=== PATIENT | female | born 1940 | race Caucasian/White ===

== ENCOUNTER 2016-09-08 06:58 | Outpatient (CLI) | payer MEDICARE, BC ==
[~2016-09-08] VITALS: Ht 167.6 cm; Wt 85.0 kg
--- NOTE | ~2016-09-08 | HEMODYNAMI ---
PATIENT:ADELSO MUHAMMAD MEDICAL RECORD: [id number] : 40 LOCATION:DTejinderCAT ADMISSION DATE: 09/08/16 Generatedon:09/08/201610:03 Patient name: ADELSO MUHAMMAD Patient #: [id number] SSN: : 1940 Date of study: 09/08/2016 Page: Of Hemodynamic Procedure Report Patient Data Patient Demographics Procedure consent was obtained First Name: ADELSO Gender: Female Last Name: JB : 1940 Patient #: [id number] Age: 76 year(s) Race: Additional ID: [id number] Contact details Address: [address] [place] [address] State: [place] City: [place] Zip code: [address] Past Medical History Allergies: No known allergies Admission Admission Data Admission Date: 09/08/2016 Admission Time: 6:58 Height (in.): 66 BSA: 1.94 (m2) Height (cm.): 167.64 BMI: 30.18 (kg/m2) Weight (lbs.): 187 Weight (kg.): 84.82 Lab Results Lab Result Date: 09/08/2016 Lab Result Time: 7:25 Biochemistry Name Units Result Min Max BUN mg/dl 23 --(----)-* 7 18 CK-MB ng/ml 0.8 --(*---)-- 0 3.6 Creatinine mg/dl 1.2 --(---*)-- 0.6 1.3 Creatinine l 53 --(*---)-- 21 215 Kinase Troponin l ng/ml 0.017 --(-*--)-- 0 0.06 CBC Name Units Result Min Max Hematocrit % 39.4 -*(----)-- 42 54 Hemoglobin g/dl 12.8 -*(----)-- 13.5 17.5 Procedure Procedure Types Cath Procedure Diagnostic Procedure C [facility] w/Coronaries FFR/IVUS Intra-Coronary IVUS Initial Intra-Coronary IVUS Additional PCI Procedure Coronary Stent Initial Peripheral Cath Diagnostic Procedure Cath Peripheral Sqcly-Foazkki-Lut-Off Procedure Description Procedure Date Procedure Date: 09/08/2016 Procedure Start Time: 9:22 Procedure End Time: 10:00 Procedure Staff Name Function Trevor Vaz MD Performing Physician Brigitte Beasley RT Scrub Negrito Gonzalez RN Nurse Prateek Mar RT Monitor Procedure Data Cath Procedure Fluoroscopy Diagnostic fluoroscopy Total fluoroscopy Time: 7.2 time: 7.2 min min Diagnostic fluoroscopy Total fluoroscopy dose: 851 dose: 851 mGy mGy Contrast Material Contrast Material Type Amount (ml) Isovue 300 172 Entry Location Entry Primary Successful Side Size Upsize Upsize Entry Closure Wylie ccessful Closure Location (Fr) 1 (Fr) 2 (Fr) Remarks Device Remarks Femoral Right 6 Fr Mechanical artery Short Compression Femoral Right 5 Fr 6 Fr Exoseal artery Short Estimated blood loss: 10 ml Diagnostic catheters Device Type Used For End Catheter Placement Terumo 5Fr Lowell 110cm Procedure catheter Cordis 5Fr Pigtail Procedure Catheter (MP) Cordis 5Fr JL 4.0 Procedure Catheter (MP) Cordis 5Fr 3DRC Catheter Procedure (MP) Procedure Complications No complications Procedure Medications Medication Administration Route Dosage Oxygen NC 2 l/min Heparin Flush Bag added to field 2 bags (1000units/500ml NS) 0.9% NaCl I.V. 100 ml/hr Radial Cocktail added to field 1 syringe (Verapomil 2mg/Nitro 400mcg/Heparin 1500units) Fentanyl I.V. 50 mcg Versed I.V. 1 mg Radial Cocktail I.A. 1 syringe (Verapomil 2mg/Nitro 400mcg/Heparin 1500units) Fentanyl I.V. 50 mcg Versed I.V. 1 mg Heparin Bolus I.V. units Nitroglycerin IC/IA I.C. 150 mcg Hemodynamics Rest BSA: 1.94 (m2) HGB: 12.8 (g/dl) O2 Consumption: Estimated: 173.01 (ml/min) O2 Co nsumption indexed: Estimated:89.18 (ml/min/m) Heart Rate: 66 (bpm) Snapshots Pre Cath Intra NCS Post Cath Vital Signs Time Heart Resp SPO2 etCO2 [id number] NIBP (mmHg) Rhythm Pain Sedation Rate (ipm) (%) (mmHg) (mmHg) Status Level (bpm) 9:05:33 67 18 95 0 0 163/88(137) NSR 0 (11) 10(A) , No pain 9:09:55 66 20 96 0 0 164/83(146) NSR 0 (11) 10(A) , No pain 9:14:13 66 18 96 0 0 147/80(132) NSR 0 (11) 10(A) , No pain 9:18:31 67 18 96 0 0 125/74(93) NSR 0 (11) 10(A) , No pain 9:22:43 67 17 95 0 0 117/67(94) NSR 0 (11) 9(A) , No pain 9:26:53 70 17 94 0 0 110/64(81) NSR 0 (11) 9(A) , No pain 9:31:04 67 17 94 0 0 97/51(74) NSR 0 (11) 9(A) , No pain 9:35:10 68 17 94 0 0 103/57(73) NSR 0 (11) 9(A) , No pain 9:39:20 68 17 95 0 0 81/47(74) NSR 0 (11) 9(A) , No pain 9:43:20 65 16 95 0 0 98/56(82) NSR 0 (11) 9(A) , No pain 9:47:22 70 17 96 0 0 118/63(89) NSR 0 (11) 9(A) , No pain 9:51:29 72 17 94 0 0 101/63(86) NSR 0 (11) 9(A) , No pain 9:55:45 71 17 96 0 0 124/72(86) NSR 0 (11) 9(A) , No pain 9:59:53 70 9 96 0 0 128/81(106) NSR 0 (11) 9(A) , No pain Medications Time Medication Route Dose Verified Delivered Reason Notes Effectiveness by by 9:08:31 Oxygen NC 2 l/min Negrito Mahan Per physician Carlos Gonzalez RN RN 9:08:44 Heparin Flush added 2 bags Negrito Mahan used for Bag to Carlos Gonzalez air traffic coordinator (1000units/500ml field RN NS) 9:08:57 0.9% NaCl I.V. 100 Negrito Mahan Per physician ml/hr Carlos Gonzaelz RN RN 9:09:05 Radial Cocktail added 1 Negrito Negrito used for (Verapomil to syringe Carlos Gonzalez RN procedure 2mg/Nitro field RN 400mcg/Heparin 1500units) 9:21:46 Fentanyl I.V. 50 mcg Negrito Negrito for sedation Carlos Gonzalez RN RN 9:21:53 Versed I.V. 1 mg Negrito Mahan for sedation Carlos Gonzalez RN RN 9:23:33 Radial Cocktail I.A. 1 Negrito Trevor for (Verapomil syringe Carlos Vaz MD vasodilation 2mg/Nitro RN 400mcg/Heparin 1500units) 9:23:40 Fentanyl I.V. 50 mcg Negrito Mahan for sedation Carlos Gonzalez RN RN 9:23:45 Versed I.V. 1 mg Negrito Negrito for sedation Carlos Gonzalez RN RN 9:33:17 Heparin Bolus I.V. units Negrito Mahan for Carlos Gonzalez RN anticoagulation RN 9:49:44 Nitroglycerin I.C. 150 mcg Negrito Mahan Per physician IC/IA Carlos Gonzalez RN drawer in jacquard loom Log Time Note 8:45:05 Negrito Gonzalez RN sent for patient. Start room use. 8:45:06 Time tracking: Regular hours 8:45:10 Plan of Care:Hemodynamics will remain stable., Cardiac rhythm will remain stable., Comfort level will be maintained., Respiratory function will remain adequate., Patient/ family verbilizes understanding of procedure., Procedure tolerated without complication., Recovers from procedure without complications.. 8:57:27 Patient received from Pre/Post Procedure Room to [facility] 1 Alert and oriented. Tansferred to table in Supine position. 8:57:28 Warm blankets applied, and vania hugger turned on for patient comfort. 8:57:28 Correct patient and procedure confirmed by team. 8:57:30 Signed procedure consent form obtained from patient. 8:57:31 ECG and BP/O2 sat monitors applied to patient. 8:57:31 Full Disclosure recording started 9:04:18 Vital chart was started 9:06:22 Baseline sample Acquired. 9:06:28 Rhythm: sinus rhythm 9:06:46 H&P Date Dictated: 09/07/2016 Within 30 days and on chart., H&P Addendum completed by physician on day of procedure. (MUST COMPLETE FOR ALL OUTPATIENTS). 9:06:47 Pre-procedure instructions explained to patient. 9:06:49 Pre-op teaching completed and patient verbalized understanding. 9:06:53 Family in waiting room. 9:06:55 Patient NPO since Midnight. 9:07:02 Patient allergic to No known allergies 9:08:31 Oxygen 2 l/min NC was administered by Negrito Gonzalez RN; Per physician; 9:08:44 Heparin Flush Bag (1000units/500ml NS) 2 bags added to field was administered by Negrito Gonzalez RN; used for procedure; 9:08:57 0.9% NaCl 100 ml/hr I.V. was administered by Negrito Gonzalez RN; Per physician; 9:09:05 Radial Cocktail (Verapomil 2mg/Nitro 400mcg/Heparin 1500units) 1 syringe added to field was administered by Negrito Gonzalez RN; used for procedure; 9:09:14 Is the patient allergic to Iodine/contrast media? No. 9:09:15 Is patient on blood thinner?Yes 9:09:19 ACC The patient was administered the following blood thiners within the last 24 hours: ACCAspirin, ACCPlavix 9:09:22 Patient diabetic? No. 9:09:27 Previous problem with sedation/anesthesia? No ? 9:09:28 Snore? Yes 9:09:29 Sleep apnea? Yes 9:09:30 Deviated septum? No 9:09:31 Opens mouth fully? Yes 9:09:32 Sticks out tongue? Yes 9:09:35 Airway obstruction? Yes copd 9:09:39 Dentures? Yes in tight] 9:09:42 Modified Jagjit's test Ulnar < 7 seconds 9:09:44 Patient pain scale 0/10 ?. 9:09:48 IV patent on arrival in left forearm with 0.9% NaCl at [facility]. 9:10:36 Lab Result : BUN 23 mg/dl 9:10:36 Lab Result : Hemoglobin 12.8 g/dl 9:10:36 Lab Result : Creatinine 1.2 mg/dl 9:10:36 Lab Result : Hematocrit 39.4 % 9:10:39 Lab results completed and on chart. 9:10:42 Right Radial & Right Groin area was prepped with chlora-prep and draped in sterile fashion 9:10:43 Alarms reviewed by R. N. 9:10:46 Sharps counted by scrub and verified by R.N. 9:10:50 Use device set Radial Dx 9:10:53 Tegaderm 4 x 4 opened to sterile field. 9:10:54 Acist Manifold opened to sterile field. 9:10:54 Acist Hand Control opened to sterile field. 9:10:55 Acist Syringe opened to sterile field. 9:10:56 Medline Cath Pack opened to sterile field. 9:10:56 Bag Decanter opened to sterile field. 9:10:57 Terumo 6Fr Slender Glidesheath opened to sterile field. 9:10:57 St Adonis 260cm J .035 wire opened to sterile field. 9:11:55 Patient Weight : 187 kg 9:12:00 Patient Height : 66 cm 9:16:18 Lab Result : Troponin l 0.017 ng/ml 9:16:18 Lab Result : Creatinine Kinase 53 l 9:16:18 Lab Result : CK-MB 0.8 ng/ml 9:21:07 Zero performed for pressure channel P1 9:21:15 Physician arrived 9:21:15 --------ALL STOP TIME OUT------ 9:21:15 Final Timeout: patient, procedure, and site verified with staff and physician. All members of the team are in agreement. 9:21:18 Right Radial & Right Groin site verified by team. 9:21:21 Physical assessment completed. ASA score P 2 - A patient with mild systemic disease as per Trevor Vaz MD. 9:21:25 Sedation plan: IV Moderate Sedation Versed, Fentanyl 9::46 Fentanyl 50 mcg I.V. was administered by Negrito Gonzalez RN; for sedation; 9::53 Versed 1 mg I.V. was administered by Negrito Gonzalez RN; for sedation; 9:22:28 Procedure started. 9:22:32 Local anesthetic to right radial artery with Lidocaine 2% by Trevor Vaz MD.INITIAL ACCESS ONLY 9:22:39 A 6 Fr Short sheath was inserted into the Right Femoral artery 9::55 A Terumo 5Fr Lowell 110cm catheter was advanced over the wire and used for Procedure. 9:23:33 Radial Cocktail (Verapomil 2mg/Nitro 400mcg/Heparin 1500units) 1 syringe I.A. was administered by Trevor Vaz MD; for vasodilation; 9:23:40 Fentanyl 50 mcg I.V. was administered by Negrito Gonzalez RN; for sedation; 9:23:45 Versed 1 mg I.V. was administered by Negrito Gonzalez RN; for sedation; 9:24:24 unabel to advance through radial approach due to a loop. 9:26:05 Local anesthetic to right femoral artery with Lidocaine 2% by Trevor Vaz MD.ADDITIONAL ACCESS 9:26:13 Terumo 5Fr Belding Sheath opened to sterile field. 9:26:24 Use device set Multipack Set 9:26:26 Diagnostic Infinity 5Fr Multipack catheter opened to sterile field. 9:26:41 A 5 Fr sheath was inserted into the Right Femoral artery 9:26:48 A Cordis 5Fr Pigtail Catheter (MP) was advanced over the wire and used for Procedure. 9:27:27 LV angiography performed. 9:27:28 LV gram done using ZAVALA 9:27:38 EF : 60 % 9::42 Injector settings: Ml/sec: 10, Volume: 20, 9:27:55 Procedure type changed to Cath procedure, Diagnostic procedure, LHC, LHC w/Coronaries, FFR/IVUS, Intra-Coronary IVUS Initial, Intra-Coronary IVUS Additional, PCI procedure, Coronary Stent Initial, Peripheral Cath Diagnostic Procedure, Cath Peripheral, Avhre-Tohxcuj-Lnr-Off 9:28:09 Abdominal Aortagram was performed. 9:28:17 Left leg runoff performed. 9:28:57 Catheter exchanged over wire. 9:29:04 A Cordis 5Fr JL 4.0 Catheter (MP) was advanced over the wire and used for Procedure. 9:29:43 LCA angiography performed. 9:30:24 Pruitt Whisper J 300cm 0.014 guide wire opened to sterile field. 9:30:28 Terumo 6Fr Belding Sheath opened to sterile field. 9:30:29 Merit BasixCompak Inflation Kit opened to sterile field. 9:31:25 Catheter exchanged over wire. 9:31:29 A Cordis 5Fr 3DRC Catheter (MP) was advanced over the wire and used for Procedure. 9:32:02 Catheter removed. 9:32:15 Sheath upsized to a 6 Fr Short. 9:32:24 Greenbush Cabazon Eagleye IVUS Catheter opened to sterile field. 9:33:08 Cordis 6FR XBLAD 3.5 guide catheter opened to sterile field. 9:33:16 6 Fr xblad 3.5 guide catheter was inserted over the wire 9:33:17 Heparin Bolus units I.V. was administered by Negrito Gonzalez RN; for anticoagulation; 9:33:19 whisper wire advanced. 9:33:56 IVUS catheter advanced over wire. 9:35:17 Wire advanced across lesion. 9:36:42 IVUS pass to LAD lesion performed. 9:36:45 IVUS catheter removed over wire. 9:36:51 Wire removed. 9:37:18 Medtronic Launcher 6Fr AR 1.0 guide catheter opened to sterile field. 9:37:36 6 Fr AR 1 guide catheter was inserted over the wire 9:38:11 Wire advanced across lesion. 9:38:16 IVUS catheter advanced over wire. 9:38:50 IVUS pass to RCA lesion performed. 9:39:51 IVUS catheter removed over wire. 9:43:17 Wire removed. 9:45:25 whisper wire advanced. 9:45:26 Wire advanced across lesion. 9:46:10 Inflation Number: 1 A Biofreedom 3.5 x 24 stent was prepped and advanced across the Prox RCA. The stent was deployed at 13 ESTUARDO for 0:10 (min:sec). 9:46:46 Stent catheter was removed intact over wire. 9:48:24 Inflation Number: 1 A Biofreedom 3.5 x 14 stent was prepped and advanced across the Mid RCA. The stent was deployed at 9 ESTUARDO for 0:10 (min:sec). 9:49:32 Stent catheter was removed intact over wire. 9:49:44 Nitroglycerin IC/IA 150 mcg I.C. was administered by Negrito Gonzalez RN; Per physician; 9:50:38 Wire removed. 9:50:39 Guide catheter removed. 9:50:52 Terumo TR Band Standard opened to sterile field. 9:51:00 Cordis 6Fr Exoseal opened to sterile field. 9:51:23 Sheath removed intact; hemostasis achieved with Exoseal to the Right Femoral artery. 9:51:30 Sheath removed intact; hemostasis achieved with Mechanical Compression to the Right Femoral artery. 9:51:38 Procedure ended.(Physican Out) 9:55:51 Fluoroscopy time 07.20 minutes. 9:55:55 Fluoroscopy dose: 851 mGy 9:55:55 Flurop Dose total: 851 9:56:10 Contrast amount:Isovue 300 172ml. 9:56:12 Sharps counted by scrub and verified by R.N. 9:56:31 TR band inflated with 12cc of air. 9:56:48 Insertion/operative site no bleeding no hematoma. 9:56:51 Post-op/insertion site Right Femoral artery dressed using a 4 x 4 and Tegaderm. 9:57:06 Post right femoral artery:stable, soft, clean and dry 9:57:08 Post Procedure Pulses reassessed and unchanged 9:57:10 Post-procedure physical assessment completed. ASA score P 2 - A patient with mild systemic disease as per Trevor Vaz MD. 9:57:12 Post procedure rhythm: unchanged. 9:57:14 Estimated blood loss: 10 ml 9:57:15 Post procedure instruction explained to patient.Patient verbalizes understanding. 9:57:16 Patient needs reinforcement of post procedure teaching. 10:00:13 Tegaderm 4 x 4 opened to sterile field. 10:00:24 Procedure and supply charges have been captured, reviewed, submitted and are correct. 10:00:26 Procedure Complication : No complications 10:00:28 Vital chart was stopped 10:00:30 See physician's report for complete and final results. 10:00:31 Report given to Pre/Post Procedure Room. 10:00:33 Patient transfered to Pre/Post Procedure Room with Stretcher. 10:00:35 Procedure ended. 10:00:35 Full Disclosure recording stopped 10:03:01 End room use (Document Last) Intervention Summary Intervention Notes Time ActionType Lesion and Equipment Action# Pressure Duration Attributes Used 9:46:10 Place stent Prox RCA Biofreedom 1 13 00:10 3.5 x 24 stent 9:48:24 Place stent Mid RCA Biofreedom 1 9 00:10 3.5 x 14 stent Device Usage Item Name Manufacture Quantity Catalog Hospital Part Current Minimal Lot# / Number Charge Number Stock Stock Serial# Code Tegaderm 4 3M 2 [id number] 574898 653681 5 x 4 Acist Acist 1 40767 458340 524770 793838 5 Manifold Medical Systems Inc Acist Hand Acist 1 88741 917245 719822 265412 5 Control Medical Systems Inc Acist Acist 1 26021 023393 048116 086897 20 Syringe Medical Systems Inc Medline Cardinal 1 [id number] 965515 86977 310368 5 Cath Pack Health Bag Microtek 1 2002S 338635 45810 567564 5 [employer] Terumo 6Fr Terumo 1 [id number] 796201 100701 314073 [address] [facility] [address] Adonis 1 664026 992836 793657 007631 30 260cm J .035 wire Terumo 5Fr Terumo 1 40-5407 523908 738356 391342 5 Lowell 110cm catheter Terumo 5Fr Terumo 1 NFC942 121854 039209 846622 40 Belding Sheath Diagnostic Cardinal 1 EL6922 162131 10942 553108 30 Infinity Health 5Fr Multipack catheter Cordis 5Fr Cardinal 1 989761 5 Pigtail Health Catheter (MP) Cordis 5Fr Cardinal 1 045067 5 JL 4.0 Health Catheter (MP) Pruitt Pruitt 1 [id number] 846164 312349 138376 5 Whisper J Vascular 300cm 0.014 guide wire Terumo 6Fr Terumo 1 [id number] 718420 596112 370226 40 Belding Sheath Merit Merit 1 DA0685 366080 010529 903501 15 [facility] Hospital[facility] Medical Inflation Kit Cordis 5Fr Cardinal 1 537491 5 3DRC Health Catheter (MP) Greenbush Greenbush 1 [id number] 043083 934622 559084 8 [place] Eagleye IVUS Catheter Cordis 6FR Cardinal 1 [id number] 686200 558784 593177 10 XBLAD 3.5 Health guide catheter Medtronic Medtronic 1 [id number] 792516 31834 636493 1 Launcher 6Fr AR 1.0 guide catheter Biofreedom Biosensors 1 [id number] 998791 908843 5 [id number] 3.5 x 24 Europe SA stent Biofreedom Biosensors 1 [id number] 021222 233805 5 [id number] 3.5 x 14 Europe SA stent Terumo TR Terumo 1 [id number] 798906 059540 971446 40 Band Standard Cordis 6Fr Cardinal 1 EX600 853953 363962 602691 10 [facility] Signature Audit [place] Stage Time Signature Unsigned Intra-Procedure 09/08/2016 Prateek Mar 10:03:10 AM RT(R) Signatures Monitor : Prateek Mar RT Signature : Date : Time : [address] [address]
[2016-09-08] MEDS ORDERED: PLAVIX75 MG PO ×2 (07:30→10:22)
[2016-09-08] MEDS ORDERED: REQUIP1 MG PO (07:31)
[2016-09-08] MEDS ORDERED: XALATAN 0.0052.5 ML EACH EYE (07:31)
[2016-09-08] MEDS ORDERED: OMEPRAZOLE (07:32)
[2016-09-08] MEDS ORDERED: BAYER CHEWABLE81 MG PO (07:33)
[2016-09-08] MEDS ORDERED: HYZAAR 100-25 T1 TAB PO (07:33)
[2016-09-08] MEDS ORDERED: PAXIL20 MG PO (07:34)
[2016-09-08] MEDS ORDERED: MOBIC7.5 MG PO (07:34)
[2016-09-08] MEDS ORDERED: K-TAB10 MEQ PO (07:35)
[2016-09-08] MEDS ORDERED: PEPCID AC20 MG PO (07:35)
[2016-09-08] MEDS ORDERED: FUROSEMIDE20 MG PO (07:35)
[2016-09-08] MEDS ORDERED: FISH OIL 1,0001 CA1 PO (07:36)
[2016-09-08 07:44] VITALS: BP 131/69; BMI 30.2
[2016-09-08 07:46] VITALS: BP 131/69; Ht 167.6 cm; Wt 85.0 kg
[2016-09-08 08:08] LABS: BASOPHILS 0.3 % (0.0-2.0); EOSINOPHILS 5.8 % (0-7); HEMATOCRIT 39.4 % (36.0-48.0); HEMOGLOBIN 12.8 g/dL (12-16); MCH 29.2 pg (26.0-34.0); MCHC 32.5 g/dL (31.0-37.0); MCV 89.7 fL (80.0-100.0); MEAN PLATELET VOLUME 11.5 fL (7.4-10.4); MONOCYTES 9.7 % (2-11); NEUTROPHILS 55.2 % (40-80); PLATELET COUNT 139 10x3/uL (130-400); RBC 4.39 10x6/uL (4.00-5.40); RDW 13.2 % (11.5-14.5); WBC 6.1 10x3/uL (4.8-10.8)
[2016-09-08 08:19] LABS: CALC OSMOLALITY 295 mosm/kg (275-300); CALCIUM 9.5 mg/dL (8.5-10.1); CARBON DIOXIDE 28.5 mmol/L (21.0-32.0); CHLORIDE - SERUM 109 mmol/L (98-107); CKMB 0.8 U/L (0.0-3.6); CREATINE KINASE 53 UL (21-215); CREATININE - SERUM 1.2 mg/dL (0.6-1.3); GLUCOSE 117 mg/dL (74-106); POTASSIUM - SERUM 3.5 mmol/L (3.5-5.1); SODIUM 146 mmol/L (136-145); UREA NITROGEN 23 mg/dL (7-18); eGFR NON AFRICAN AMERICAN 46 mL/min (90-120)
[2016-09-08 08:20] LABS: TROPONIN-I < 0.017 ng/mL (0.000-0.060)
--- NOTE | 2016-09-08 10:39 | NUR ---
1030 SLEEPING, LYING FLAT. NSR RATE 64 W NO C/O CHEST PAIN. PULSES PALP X4. R WRIST TR BAND C/D/I WITH NO HEMATOMA. R GROIN EXOSEAL C/D/I WITH NO HEMATOMA OR BLEEDING.
--- NOTE | 2016-09-08 11:14 | NUR ---
1100 LYING FLAT, NSR RATE 64 W NO C/O CHEST PAIN. PULSES PALP X4, R WRIST AND R GROIN REMAIN C/D/I WITH NO HEMATOMA OR BLEEDING. PULSES PALP X 4. FAMILY AT BEDSIDE. ROOM AIR WITH NO DISTRESS.
--- NOTE | 2016-09-08 13:16 | NUR ---
1145 LYING FLAT, VITALS ALL WNL. R WRIST AND R GROIN REMAINS C/D/I WITH NO HEMATOMA OR BLEEDING. 1300 2CC AIR REMOVED FROM R WRIST TR BAND. R GROIN REMAINS C/D/I WITH NO HEMATOMA OR BLEEDING.
--- NOTE | 2016-09-08 13:30 | NUR ---
1330 HOB ELEVATED, SITTING UP EATING SANDWICH. R WRIST TR BAND. STUDY EKG COMPLETED AT BEDSIDE.
--- NOTE | 2016-09-08 14:34 | NUR ---
REMAINING AIR REMOVED FROM R WRIST TR BAND. TEGADERM AND COTTON BALL APPLIED. R GROIN REMAINS C/D/I WITH NO HEMATOMA OR BLEEDING. AMBULATED TO BATHROOM, R GROIN REMAINS C/D/I. D/C INSTRUCTIONS DISCUSSED WITH PATIENT AND AT BEDSIDE. WHEELED OUT VIA WHEELCHAIR.
--- NOTE | 2016-09-13 08:06 | OP ---
PATIENT NAME: ADELSO MUHAMMAD MEDICAL RECORD: [id number] :40 LOCATION:D.CAT ADMISSION DATE: SURGEON: RUSS SHAH MD DATE OF OPERATION: 09/08/2016 PROCEDURES: 1. PTCA stent to RCA. 2. Intravascular ultrasound of RCA. 3. Intravascular ultrasound of LAD. 4. Left heart catheterization. 5. Selective coronary angiography. 6. Left ventriculogram. INDICATION: Unstable angina. PROCEDURE IN DETAIL: After informed consent was obtained and after a detailed explanation of the risks, benefits as well as alternative therapies, the patient elected to proceed with angiogram and angioplasty. The right femoral area was prepped and draped in normal sterile fashion. The right femoral artery was cannulated via modified Seldinger technique with placement of a 6-Bulgarian sheath. All catheters exchanged through this sheath. FINDINGS: The left ventriculogram was performed in standard 30-degree ZAVALA view, reveals good cardiac wall motion throughout all segments. Overall ejection fraction estimated at 60%. SELECTIVE CORONARY ANGIOGRAPHY: 1. Left main stenosis with no significant angiographic disease. 2. Left anterior descending has a questionable area of stenosis proximally; however, intravascular ultrasound revealed that this is no greater than 30%. 3. Left circumflex shows moderate irregularities, but no flow-limiting stenosis. 4. Right coronary has a 70% stenosis confirmed by intravascular ultrasound throughout the mid vessel. PTCA STENT OF THE RIGHT CORONARY: Stents used were BioFreedom 3.5 x 24 and 3.5 x 14. Result was 0% residual stenosis. OVERALL IMPRESSION: Successful percutaneous transluminal coronary angioplasty stent of the right coronary artery going from 70% initial stenosis confirmed by intravascular ultrasound to 0% residual stenosis. TRANSINT:[id number] Voice Confirmation ID: [id number] DOCUMENT ID: [id number] RUSS SHAH MD at 0806 CC: [id number] DICTATION DATE: 09/08/16 1002 SECONDS GRADER: 09/08/[address] [facility] CLI 09/08/[address] [address]
--- NOTE | 2016-09-13 08:06 | OP ---
PATIENT NAME: ADELSO MUHAMMAD MEDICAL RECORD: [id number] :40 LOCATION:D.CAT ADMISSION DATE: SURGEON: RUSS SHAH MD DATE OF OPERATION: 09/08/2016 PROCEDURES: 1. Aortofemoral runoff. 2. Abdominal aortography. INDICATION: Claudication, peripheral vascular disease, difficulty obtaining access for coronary intervention. PROCEDURE: After informed consent was obtained and after detailed explanation of risks, benefits as well as alternative therapies, the patient elected to proceed with angiogram and aortofemoral runoff. The right femoral area had a preexisting sheath from peripheral intervention. All catheters exchanged through this sheath. FINDINGS: Abdominal aortography was performed. The catheter was pulled down for aortofemoral runoff. Abdominal aortography reveals xixl-in-yuudbkwj irregularities, no flow-limiting stenosis. No dissection or aneurysm formation. No renal artery stenosis. RIGHT LEG: A. Iliac: The common internal and external iliacs are tortuous, calcified, but no significant stenosis. B. Femoral system: The common superficial and deep femoral have moderate irregularities, but no flow-limiting stenosis. C. Popliteal and infrapopliteal vessels are patent with good 3-vessel runoff to the foot, although mildly diffusely diseased. LEFT LEG: A. Iliac: The common internal and external iliacs are tortuous, calcified, but no significant stenosis. B. Femoral system: The common superficial and deep femoral have moderate irregularities, but no flow-limiting stenosis. C. Popliteal and infrapopliteal vessels are patent with good 3-vessel runoff to the foot, although mildly diffusely diseased. OVERALL IMPRESSION: Mild peripheral vascular disease is present. No flow-limiting stenosis. Continue medical management of the peripheral vascular disease and peripheral risk factors. TRANSINT:[id number] Voice Confirmation ID: [id number] DOCUMENT ID: [id number] RUSS SHAH MD at 0806 CC: [id number] DICTATION DATE: 09/08/16 1131 CARDING MACHINE OPERATOR: 09/08/16 1651 DEP CLI 09/08/16 [id number] [place] [address]
== END 2016-09-08 14:42 | disposition home or self-care (01) ==
LOC: D.CATH 06:58
PROVIDERS: Internal Medicine Interventional Cardiology
DX: I20.9 Angina pectoris, unspecified (principal); I10 Essential (primary) hypertension; E78.5 Hyperlipidemia, unspecified; J44.9 Chronic obstructive pulmonary disease, unspecified; Z00.6 Encounter for examination for normal comparison and control in clinical research program; Z01.812 Encounter for preprocedural laboratory examination
CPT/HCPCS: 93458; 92978; 92979; C9600

== ENCOUNTER 2018-06-20 11:25 | Day surgery (SDC) | payer MEDICARE, BC ==
[2018-06-19 14:48] LABS: HEMATOCRIT 41.2 % (36.0-48.0); HEMOGLOBIN 13.6 g/dL (12-16); MCH 28.9 pg (26.0-34.0); MCV 87.7 fL (80.0-100.0); MEAN PLATELET VOLUME 11.1 fL (7.4-10.4); RBC 4.7 10x6/uL (4.00-5.40); RDW 13.7 % (11.5-14.5); WBC 6.1 10x3/uL (4.8-10.8)
[~2018-06-20] VITALS: Ht 167.6 cm; Wt 82.6 kg
[~2018-06-20 11:25] MED LIST: ALPHAGAN P15 ML EACH EYE; BAYER CHEWABLE81 MG PO; FISH OIL 1,0001 CA1 PO; FUROSEMIDE20 MG PO; HYZAAR 100-25 T1 TAB PO; K-TAB10 MEQ PO; LIPITOR20 MG PO; MOBIC7.5 MG PO; OMEPRAZOLE; OMEPRAZOLE20 M1 PO; PAXIL20 MG PO; PEPCID AC20 MG PO; PLAVIX75 MG PO; REQUIP1 MG PO; SPIRIVA18 MCG INH; XALATAN 0.0052.5 ML EACH EYE
[2018-06-20 13:30] VITALS: BP 116/61; Ht 167.6 cm; Wt 82.6 kg
[2018-06-20 14:01] LABS: ANION GAP 13.6 mmol/L (8-16); CARBON DIOXIDE 26.7 mmol/L (21.0-32.0); CREATININE - SERUM 1.2 mg/dL (0.6-1.3); POTASSIUM - SERUM 3.3 mmol/L (3.5-5.1)
--- NOTE | 2018-06-20 16:30 | NUR ---
REC'D FROM RR. FAMILY AT BEDSIDE. APPLE JUICE BROUGHT TO PATIENT. ICE PACK APPLIED TO TOP OF RAFAL. DRESSING CDI.
--- NOTE | 2018-06-20 17:00 | NUR ---
JEWELL ROY BROUGHT TO PT. FAMILY AT BEDSIDE. NO C/O VOICED. RELATES FOOT IS NUMB BUT CAN WIGGLE TOES.
--- NOTE | 2018-06-20 17:30 | NUR ---
TOLERATED DIET. IV DC'D WITH CATHETER INTACT.
--- NOTE | 2018-06-20 17:50 | NUR ---
WRITTEN AND VERBAL DC INST. GIVEN TO PT . VERBALIZED UNDERSTANDING.
--- NOTE | 2018-06-20 18:05 | NUR ---
DC'D HOME WITH FAMILY VIA PRIVATE VEHICLE. TAKEN TO VEHICLE VIA WC. STABLE AT TIME OF DC.
--- NOTE | 2018-07-18 17:49 | OP ---
PATIENT NAME: ADELSO MUHAMMAD MEDICAL RECORD: [id number] :40 LOCATION:.[facility] ADMISSION DATE: SURGEON: EMILY ESPINAL DATE OF OPERATION: 06/20/2018 SURGEON: Emily Espinal DPM PREOPERATIVE DIAGNOSES: 1. Hallux abductovalgus, right foot. 2. Ingrown toenail, right great toe. POSTOPERATIVE DIAGNOSES: 1. Hallux abductovalgus, right foot. 2. Ingrown toenail, right great toe. PROCEDURES: 1. Polo bunionectomy, right foot. 2. Total permanent chemical matrixectomy, right great toenail. ANESTHESIA: Local MAC. HEMOSTASIS: Pneumatic ankle tourniquet inflated to 250 mmHg. ESTIMATED BLOOD LOSS: Minimal. MATERIALS: One 2.5-mm [employer] screw. INJECTABLES: A 20 mL of 0.5% bupivacaine plain. The patient has long-standing pain associated with a bunion deformity and an ingrown toenail on the right great toe. She has tried wider shoes to no avail. She is here today for surgical correction. We again reviewed the risks and benefits of the procedures. Complications were discussed. All questions were answered. She was appropriately consented for the above-mentioned procedures. DESCRIPTION OF PROCEDURE: The patient was brought into the operating room and placed on the operating table in supine position. A time-out was called with Dr. Espinal, who identified the patient, the surgical site, and the surgery to be performed. Once appropriate anesthesia was obtained, the foot was prepped and draped in the usual aseptic manner. The pneumatic ankle tourniquet was inflated to 250 mmHg on the well-padded right ankle. Attention was directed to the dorsal aspect of the first metatarsophalangeal joint, where a 6-cm linear incision was made. This incision was carried deep to soft tissue with care being taken to retract all vital neurovascular structures. All bleeders were cauterized along the way. The first intermetatarsal space was entered utilizing sharp and blunt dissection. The conjoined tendon of the abductor hallucis tendon was identified and sharply transected at the base of the proximal phalanx. Attention was then directed further proximally to the level of the fibular sesamoidal ligament and it was sharply transected. Attention was then redirected to the dorsal aspect of the first metatarsophalangeal joint, where capsulotomy was performed. The periosteum was reflected from the first metatarsophalangeal joint, thus exposing the OPERATIVE REPORT [id number] ADELSO MUHAMMAD hypertrophied medial eminence of the first metatarsal. Utilizing a sagittal saw, the hypertrophied medial eminence was removed. Next, utilizing a sagittal saw, a V-shaped osteotomy was created in the head of the first metatarsal. This was a mqwjunz-ceq-hqehicu osteotomy with the apex oriented distally. The capital fragment was shifted laterally and impacted upon the first metatarsal shaft. Next, utilizing grab driver's recommended technique, one 2.5-mm screw was placed across the osteotomy. All remaining overhanging bone from the medial aspect of the first metatarsal shaft was removed with bone saw. The surgical site was then irrigated with copious amounts of normal sterile saline via bulb syringe. The periosteum was reapproximated and coapted using 3-0 Vicryl. The subcutaneous was reapproximated and coapted using 4-0 Vicryl. The skin was reapproximated and coapted using 4-0 nylon. A dressing consisting of copious antibiotic ointment and 4 x 4s were applied to the surgical site. Total permanent chemical matrixectomy, right great toe. Attention was directed to the right great toenail, which was noted to be incurvated. Next, utilizing a spatula and a hemostat, the entire nail plate was removed. The medial, lateral, and proximal nail grooves were all curetted free of any debris. Next, three times 12-second sodium hydroxide applications were applied to the exposed matrix. The surgical site was then irrigated with copious amounts of normal sterile saline via bulb syringe. A dressing consisting of antibiotic ointment and 4 x 4 was applied to the great toe. Further dressing consisting of additional 4 x 4, Kerlix, and Paul bandage was applied to the right foot. The pneumatic ankle tourniquet was deflated and capillary refill time was immediate to all toes of the right foot. The patient tolerated the procedure and the anesthesia well. She left the operating with vital signs stable and cap refill time intact. The patient was discharged home with instructions to ice and elevate the right foot. She has a boot to help offload the surgical site. She has my cell phone number for any afterhours difficulties. There were no complications with these procedures. We will follow up with her in the office next week. TRANSINT:[id number] Voice Confirmation ID: [id number] DOCUMENT ID: [id number] EMILY ESPINAL at 1749 CC: [id number] DICTATION DATE: 06/20/18 1600 CONTINUITY PERSON: 06/20/18 1905 [facility] 06/20/18 [place] [id number] [place] [id number]
== END 2018-06-20 18:05 | disposition home or self-care (01) ==
LOC: D.OPS 11:25 → D.PAN 14:00 → D.OPS 14:00
PROVIDERS: Anesthesiology
DX: M20.11 Hallux valgus (acquired), right foot (principal); L60.0 Ingrowing nail; J44.9 Chronic obstructive pulmonary disease, unspecified; I10 Essential (primary) hypertension; Z95.5 Presence of coronary angioplasty implant and graft; K21.9 Gastro-esophageal reflux disease without esophagitis; M19.90 Unspecified osteoarthritis, unspecified site; Z79.82 Long term (current) use of aspirin; Z79.899 Other long term (current) drug therapy; Z01.812 Encounter for preprocedural laboratory examination

== ENCOUNTER 2018-08-11 00:10 | Inpatient (IN) | payer MEDICARE, BC ==
[2018-08-11] VITALS (7 sets, daily range): BP systolic 111–131; BP diastolic 34–66; Ht 167.6 cm; Wt 81.8 kg
[~2018-08-11] VITALS: Ht 167.6 cm; Wt 81.8 kg
[2018-08-11 00:37] LABS: BASOPHILS 0.3 % (0-2); EOSINOPHILS 1.5 % (0-7); HEMOGLOBIN 12.4 g/dL (12-16); IMMATURE GRANULOCYTES 0.2 % (0-5); MCH 29.4 pg (26.0-34.0); MCHC 32.6 g/dL (31.0-37.0); MEAN PLATELET VOLUME 11.4 fL (7.4-10.4); MONOCYTES 8.4 % (2-11); NEUTROPHILS 69.6 % (40-80); PLATELET COUNT 158 10x3/uL (130-400); RBC 4.22 10x6/uL (4.00-5.40); RDW 14.1 % (11.5-14.5)
--- NOTE | 2018-08-11 01:32 | NUR ---
PT ARRIVED ON UNIT VIA WHEELCHAIR ESCORTED BY ER STAFF AND DAUGHTER. ORIENTED TO ROOM AND CALL LIGHT. NPO STATUS...SIGNAGE ON DOOR AND EXPLAINED TO PT. TOILETRIES SUPPLIED TO PT.
--- NOTE | 2018-08-11 02:04 | NUR ---
ADMISSION ASSESSMENT AND HISTORY COMPLETE.
--- NOTE | 2018-08-11 02:15 | NUR ---
GAVE CD OF CT FROM [facility] TO RADIOLOGY TO UPLOAD TO PT'S CHART. RETURNED AND ORIGINAL IN HARD CHART.
--- NOTE | 2018-08-11 10:15 | NUR ---
ALERT AND ORIENTED. DAYSI ANY ABD PAIN OR DISCOMFORT ON PALPATION WITH BS NOTED X4 WITH SOFT ABDOMEN NO S/S OF OCCULT BLOOD AT THIS TIME. ENCOURAGED TO USE CALL LIGHT FOR ASSIST WITH CONTINUED NPO.
[2018-08-11 11:47] LABS: ALBUMIN 3.3 g/dL (3.4-5.0); ANION GAP 12.4 mmol/L (8-16); BILIRUBIN - TOTAL 0.43 mg/dL (0.2-1.3); CALCIUM 9.2 mg/dL (8.5-10.1); CARBON DIOXIDE 27.1 mmol/L (21.0-32.0); CREATININE - SERUM 1.4 mg/dL (0.6-1.3); POTASSIUM - SERUM 3.5 mmol/L (3.5-5.1); PROTEIN - SERUM 6.5 g/dL (6.4-8.2)
--- NOTE | 2018-08-11 19:00 | NUR ---
REPORT RECEIVED AND CARE OF PT ASSUMED. PT LYING IN SUPINE POSITION WATCHING TV. IV IN RIGHT AC PATENT WITH NS INFUSING AT 50 ML / HR AND PROCALAMINE INFUSING AT 30 ML / HR. TELEMETRY IN PLACE AND READING SR AT THIS ASSESSMENT. WILL MONITOR FOR NEEDS.
[2018-08-11 19:56] LABS: HEMATOCRIT 36.1 % (36.0-48.0); HEMOGLOBIN 11.4 g/dL (12-16)
[2018-08-11] MEDS ORDERED: ROPINIROLE HCL2 MG PO (20:02)
--- NOTE | 2018-08-11 21:26 | NUR ---
HS MEDICATIONS GIVEN. WILL CONTINUE TO MONITOR FOR NEEDS.
[2018-08-12] VITALS: BP 107/52
[2018-08-12 04:00] VITALS: BP 130/55
[2018-08-12 05:24] LABS: BASOPHILS 0.3 % (0-2); EOSINOPHILS 3.9 % (0-7); IMMATURE GRANULOCYTES 0.5 % (0-5); LYMPHOCYTES 23.2 % (15-50); MCH 29.4 pg (26.0-34.0); MCHC 32.4 g/dL (31.0-37.0); MCV 90.9 fL (80.0-100.0); MEAN PLATELET VOLUME 11.2 fL (7.4-10.4); MONOCYTES 8.3 % (2-11); NEUTROPHILS 63.8 % (40-80); PLATELET COUNT 138 10x3/uL (130-400); RBC 3.74 10x6/uL (4.00-5.40); RDW 14.1 % (11.5-14.5)
[2018-08-12 05:26] LABS: WBC 6.4 10x3/uL (4.8-10.8)
[2018-08-12 05:41] LABS: ALBUMIN 2.8 g/dL (3.4-5.0); ANION GAP 10.3 mmol/L (8-16); BILIRUBIN - TOTAL 0.45 mg/dL (0.2-1.3); CALCIUM 8.6 mg/dL (8.5-10.1); CARBON DIOXIDE 27.4 mmol/L (21.0-32.0); CREATININE - SERUM 1.1 mg/dL (0.6-1.3); POTASSIUM - SERUM 3.7 mmol/L (3.5-5.1); PROTEIN - SERUM 5.7 g/dL (6.4-8.2)
[2018-08-12 08:55] VITALS: BP 109/52
[2018-08-12 11:50] LABS: HEMOGLOBIN 10.8 g/dL (12-16)
[2018-08-12 13:00] VITALS: BP 118/55
[2018-08-12 16:00] VITALS: BP 113/58
--- NOTE | 2018-08-12 16:31 | MORECARE ---
CASE MANAGEMENT DISCHARGE SUMMARY PATIENT: ADELSO SERRATO UNIT: [id number] ADM DATE: 08/11/18 AGE: 78 : 40 SEX: F ROOM/BED: D.2227 AUTHOR: MARCELA FENG PHYSICIAN: REFERRING PHYSICIAN: ASHLEY MORRIS MD DATE OF SERVICE: 08/12/18 Discharge Plan Patient Name: ADELSO SERRATO [facility] [facility] 1940 Planned Disposition: Home Anticipated Discharge Date: Discharge Date: Expected LOS: Initial Reviewer: [email or web address] Initial Review Date: 08/12/2018 Generated: 08/12/18 5:31 pm DCPIA - Discharge Planning Initial Assessment Updated by [email or web address]: Rhoda Cota on 08/12/18 4:29 pm * Is the patient Alert and Oriented? Yes * How many steps to enter\exit or inside your home? 1/0 * PCP Dr. Yesica Tang in [place] * Pharmacy [facility] in [place] * Preadmission Environment Home with Family * ADLs Independent * Equipment Nebulizer Oxygen * List name and contact numbers for known caregivers / representatives who currently or will assist patient after discharge: Nolberto Serrato - spouse - [phone] Jerome Lipscomb - son - [phone] * Verbal permission to speak to the caregivers and representatives has been obtained from the patient. Yes * Community resources currently utilized None * Please name any agencies selected above. Unsure of name of DME for oxygen and nebulizer supplies * Additional services required to return to the preadmission environment? No * Can the patient safely return to the preadmission environment? Yes * Has this patient been hospitalized within the prior 30 days at any hospital? No Patient Name: ADELSO SERRATO Page [id number] at 1631 All edits/amendments must be made on the electronic document DICTATION DATE: 08/12/18 163 LOGISTICS SUPERVISOR: MAYLIN 08/12/18 1630 RPT#: [id number] DC DATE: STATUS: ADM IN [facility] [address] [place] [address] END OF REPORT
--- NOTE | 2018-08-12 16:41 | MORECARE ---
CASE MANAGEMENT DISCHARGE SUMMARY PATIENT: ADELSO SERRATO UNIT: [id number] ADM DATE: 08/11/18 AGE: 78 : 40 SEX: F ROOM/BED: D.2227 AUTHOR: PINGDOC PHYSICIAN: REFERRING PHYSICIAN: ASHLEY MORRIS MD DATE OF SERVICE: 08/12/18 Discharge Plan Patient Name: ADELSO SERRATO Facility: [facility]:[place] : 1940 Planned Disposition: Home Anticipated Discharge Date: Discharge Date: Expected LOS: Initial Reviewer: [email or web address] Initial Review Date: 08/12/2018 Generated: 08/12/18 5:40 pm Comments DCP- Discharge Planning Updated by [email or web address]: Rhoda Cota on 08/12/18 3:[address] Patient Name: ADELSO SERRATO Admission Status: ER Accout number: [id number] Admission Date: 08-11-2018 : 1940 Admission Diagnosis: Attending: ASHLEY MORRIS Current LOS: 1 Anticipated DC Date: Planned Disposition: Home Primary Insurance: MEDICARE A & B Discharge Planning Comments: CM met with patient to complete initial dc planning assessment. CM educated patient on the CM role and verbal consent given by patient to complete assessment. Patient lives at home with her . At discharge patient plans to return and feels this is a safe discharge. States her will drive her home on discharge. She is independent with all ADL's and AIDL's. CM discussed availability of home health, rehab services, and medical equipment. Patient denied known discharge needs at this time. She states she wears oxygen only as needed and has a nebulizer, but no longer uses nebulizer medications. She is unsure of the name of her DME company for her oxygen. CM will continue to follow and will assist as needed with dc plans/needs. Industrial Therapist: Rhoda Cota DCPIA - Discharge Planning Initial Assessment Updated by [email or web address]: Rhoda Cota on 08/12/18 4:29 pm * Is the patient Alert and Oriented? Yes * How many steps to enter\exit or inside your home? 1/0 * PCP Dr. Yesica Tang in [place] * Pharmacy [facility] in [place] * Preadmission Environment Home with Family * ADLs Independent * Equipment Nebulizer Oxygen * List name and contact numbers for known caregivers / representatives who currently or will assist patient after discharge: Nolberto Serrato - spouse - [phone] Jerome Lipscomb - son - [phone] * Verbal permission to speak to the caregivers and representatives has been obtained from the patient. Yes * Community resources currently utilized None * Please name any agencies selected above. Unsure of name of DME for oxygen and nebulizer supplies * Additional services required to return to the preadmission environment? No * Can the patient safely return to the preadmission environment? Yes * Has this patient been hospitalized within the prior 30 days at any hospital? No Last DP export: 08/12/18 3:31 p Patient Name: ADELSO SERRATO Page [id number] at 1641 All edits/amendments must be made on the electronic document DICTATION DATE: 08/12/18 1640 GAS DISTRIBUTION PLANT OPERATOR: MAYLIN 08/12/18 1640 RPT#: [id number] DC DATE: STATUS: ADM IN [facility] [address] [place] [address] END OF REPORT
--- NOTE | 2018-08-12 18:49 | NUR ---
I have reviewed this patient and I concur with the Shift Assessment completed by the Licensed Practical Nurse today this shift.
[2018-08-12 19:36] LABS: HEMATOCRIT 34.9 % (36.0-48.0)
--- NOTE | 2018-08-12 19:40 | NUR ---
PT SITTING UP IN BED W/O DISTRESS. ALERT AND ORIENTED. IV RIGHT AC INFUSING NS @ 50 AND PROCAL @ 30. DENIES NEEDS AT THIS TIME. CL IN REACH, WILL CONT TO MONITOR
[2018-08-12 20:00] VITALS: BP 133/61
--- NOTE | 2018-08-12 21:30 | NUR ---
PT STATES SHE HAS HEADACHE 6. GAVE MORPHINE ORDERED. WILL CONT TO MONITOR
[2018-08-13 04:00] VITALS: BP 140/57
[2018-08-13 05:56] LABS: BASOPHILS 0.2 % (0-2); EOSINOPHILS 4.9 % (0-7); HEMATOCRIT 32.8 % (36.0-48.0); HEMOGLOBIN 10.5 g/dL (12-16); IMMATURE GRANULOCYTES 0.5 % (0-5); LYMPHOCYTES 24.7 % (15-50); MCV 90.6 fL (80.0-100.0); MEAN PLATELET VOLUME 11.2 fL (7.4-10.4); MONOCYTES 10.5 % (2-11); NEUTROPHILS 59.2 % (40-80); PLATELET COUNT 118 10x3/uL (130-400); RBC 3.62 10x6/uL (4.00-5.40); RDW 13.9 % (11.5-14.5); WBC 5.5 10x3/uL (4.8-10.8)
[2018-08-13 06:18] LABS: ALBUMIN 2.6 g/dL (3.4-5.0); ANION GAP 13.1 mmol/L (8-16); BILIRUBIN - TOTAL 0.35 mg/dL (0.2-1.3); CALCIUM 8.7 mg/dL (8.5-10.1); CARBON DIOXIDE 25.4 mmol/L (21.0-32.0); POTASSIUM - SERUM 3.5 mmol/L (3.5-5.1); PROTEIN - SERUM 5.2 g/dL (6.4-8.2)
[2018-08-13 08:52] VITALS: BP 157/72
[2018-08-13 13:34] LABS: HEMOGLOBIN 11.7 g/dL (12-16)
[2018-08-13 13:49] VITALS: BP 145/83
[2018-08-13 16:39] VITALS: BP 155/69
--- NOTE | 2018-08-13 18:52 | NUR ---
I have reviewed this patient and I concur with the Shift Assessment completed by the Licensed Practical Nurse today this shift.
[2018-08-13 19:38] LABS: HEMATOCRIT 35.2 % (36.0-48.0); HEMOGLOBIN 11.5 g/dL (12-16)
--- NOTE | 2018-08-13 19:45 | NUR ---
PT SITTING UP IN BED, NO SIGNS OF DISTRESS. IV RIGHT AC INFUSING NS @ 50 AND PROCAL @ 30. DENIES NEEDS OR PAIN. CL IN REACH, WILL CONT TO MONITOR
[2018-08-13 20:27] VITALS: BP 155/79
--- NOTE | 2018-08-13 23:00 | NUR ---
DR JIMENEZ AT BEDSIDE. PT IV RIGHT AC HURTING. ORDERS FROM DR JIMENEZ TO DC IV AND FLUIDS. ORDER FOR TYLENOL 325MG Q6HPRN FOR PAIN. PT HAD HEADACHE AND HER FOOT WAS HURTING FROM CHRONIC PAIN FROM PAST SX. TYLENOL GIVEN ORDERED. DC'D IV W/ CATHETER TIP INTACT. DENIES OTHER NEEDS AT THIS TIME. CL IN REACH, WILL CONT TO MONITOR
[2018-08-14 00:40] VITALS: BP 152/73
[2018-08-14 04:47] VITALS: BP 133/61
[2018-08-14 05:29] LABS: BASOPHILS 0.2 % (0-2); HEMATOCRIT 33.4 % (36.0-48.0); HEMOGLOBIN 10.8 g/dL (12-16); IMMATURE GRANULOCYTES 0.8 % (0-5); LYMPHOCYTES 23.6 % (15-50); MCHC 32.3 g/dL (31.0-37.0); MCV 89.5 fL (80.0-100.0); MEAN PLATELET VOLUME 11.5 fL (7.4-10.4); MONOCYTES 9.1 % (2-11); NEUTROPHILS 60.3 % (40-80); PLATELET COUNT 139 10x3/uL (130-400); RBC 3.73 10x6/uL (4.00-5.40); RDW 13.7 % (11.5-14.5); WBC 6.2 10x3/uL (4.8-10.8)
[2018-08-14 05:59] LABS: ALBUMIN 2.7 g/dL (3.4-5.0); ANION GAP 12.5 mmol/L (8-16); BILIRUBIN - TOTAL 0.32 mg/dL (0.2-1.3); CALCIUM 8.9 mg/dL (8.5-10.1); CARBON DIOXIDE 24.9 mmol/L (21.0-32.0); POTASSIUM - SERUM 3.4 mmol/L (3.5-5.1); PROTEIN - SERUM 5.5 g/dL (6.4-8.2)
--- NOTE | 2018-08-14 08:00 | NUR ---
PATIENT IN BED WITH NO COMPLAINTS OR SIGNS OF DISTRESS. EYES CLOSED RESTING QUIETLY. CALL LIGHT WITHIN REACH.
[2018-08-14 08:18] VITALS: BP 125/63
[2018-08-14] MEDS ORDERED: FLAGYL500 MG PO (09:49)
--- NOTE | 2018-08-14 10:28 | MORECARE ---
CASE MANAGEMENT DISCHARGE SUMMARY PATIENT: ADELSO SERRATO UNIT: [id number] ADM DATE: 08/11/18 AGE: 78 : 40 SEX: F ROOM/BED: D.2227 AUTHOR: MARCELA FENG PHYSICIAN: REFERRING PHYSICIAN: ASHLEY MORRIS MD DATE OF SERVICE: 08/14/18 Discharge Plan Patient Name: ADELSO SERRATO Facility: [facility]:[place] : 1940 Planned Disposition: Home Anticipated Discharge Date: Discharge Date: Expected LOS: Initial Reviewer: [email or web address] Initial Review Date: 08/12/2018 Generated: 08/14/18 11:28 am Comments DCP- Discharge Planning Updated by [email or web address]: Rhoda Cota on 08/14/18 9:[address] Patient Name: ADELSO SERRATO Encounter No: [id number] : 1940 Primary Insurance: MEDICARE A & B Anticipated DC Date: Planned Disposition: Home External Planned Provider: : DCP follow-up note: Patient and family in agreement with discharge plan. No changes to plan. Case management will follow and assist as needed. Rhoda Cota DCP- Discharge Planning Updated by [email or web address]: Rhoda Cota on 08/12/18 3:[address] Patient Name: ADELSO SERRATO Admission Status: ER Accout number: [id number] Admission Date: 08-11-2018 : 1940 Admission Diagnosis: Attending: ASHLEY MORRIS Current LOS: 1 Anticipated DC Date: Planned Disposition: Home Primary Insurance: MEDICARE A & B Discharge Planning Comments: CM met with patient to complete initial dc planning assessment. CM educated patient on the CM role and verbal consent given by patient to complete assessment. Patient lives at home with her . At discharge patient plans to return and feels this is a safe discharge. States her will drive her home on discharge. She is independent with all ADL's and AIDL's. CM discussed availability of home health, rehab services, and medical equipment. Patient denied known discharge needs at this time. She states she wears oxygen only as needed and has a nebulizer, but no longer uses nebulizer medications. She is unsure of the name of her DME company for her oxygen. CM will continue to follow and will assist as needed with dc plans/needs. Farm Adviser: Rhoda Craigaydee DCPIA - Discharge Planning Initial Assessment Updated by [email or web address]: Rhoda Craigaydee on 08/12/18 4:29 pm * Is the patient Alert and Oriented? Yes * How many steps to enter\exit or inside your home? 1/0 * PCP Dr. Yesica Tang in [place] * Pharmacy [facility] in [place] * Preadmission Environment Home with Family * ADLs Independent * Equipment Nebulizer Oxygen * List name and contact numbers for known caregivers / representatives who currently or will assist patient after discharge: Nolberto Serrato - spouse - [phone] Jerome Lipscomb - son - [phone] * Verbal permission to speak to the caregivers and representatives has been obtained from the patient. Yes * Community resources currently utilized None * Please name any agencies selected above. Unsure of name of DME for oxygen and nebulizer supplies * Additional services required to return to the preadmission environment? No * Can the patient safely return to the preadmission environment? Yes * Has this patient been hospitalized within the prior 30 days at any hospital? No Coverage Notice Reviewer: [id number] - Rhoda Craigaydee Notice Issued Date-Time: 08/14/2018 10:17 Notice Type: IM Discharge Notice Notice Delivered To: Patient Relationship to Patient: Self Press Manager Name: Delivery Method: HAND - Hand Delivered Annalee Days: Prior Verbal Notification: Recipient Understood Notice: Yes Recipient Signature: Yes Med Rec Note Co-signed by Attending: Coverage Notice Comment: IMM explained, signed, given, copy placed on MR Last DP export: 08/12/18 3:40 p Patient Name: ADELSO SERRATO Page [phone] at 1028 All edits/amendments must be made on the electronic document DICTATION DATE: 08/14/18 1027 AIRPLANE CLEANER: MAYLIN 08/14/18 1027 RPT#: [id number] DC DATE: STATUS: ADM IN [facility] [address] [place] [address] END OF REPORT
--- NOTE | 2018-08-14 10:50 | NUR ---
PATIENT RECIEVED DISCHARGE INSTRUCTIONS. VERBALIZED UNDERSTANDING. NO QUESTIONS AT THIS TIME. EXPLAINED PRESCRIPTIONS SENT TO [facility]. AWAITING FOR DC.
--- NOTE | 2018-08-15 10:24 | MORECARE ---
CASE MANAGEMENT DISCHARGE SUMMARY PATIENT: ADELSO SERRATO UNIT: [id number] ADM DATE: 08/11/18 AGE: 78 : 40 SEX: F ROOM/BED: D.2227 AUTHOR: PINGDOC PHYSICIAN: REFERRING PHYSICIAN: ASHLEY MORRIS MD DATE OF SERVICE: 08/15/18 Discharge Plan Patient Name: ADELSO SERRATO Facility: [facility]:[place] : 1940 Planned Disposition: Home Anticipated Discharge Date: Discharge Date: 08/14/2018 Expected LOS: 0 Initial Reviewer: [email or web address] Initial Review Date: 08/12/2018 Generated: 08/15/18 11:24 am Comments DCP- Discharge Planning Updated by [id number]: Rhoda Ctoa on 08/14/18 9:[address] Patient Name: ADELSO SERRATO Encounter No: [id number] : 1940 Primary Insurance: MEDICARE A & B Anticipated DC Date: Planned Disposition: Home External Planned Provider: : DCP follow-up note: Patient and family in agreement with discharge plan. No changes to plan. Case management will follow and assist as needed. Rhoda Craigaydee DCP- Discharge Planning Updated by [email or web address]: Rhoda Craigaydee on 08/12/18 3:[address] Patient Name: ADELSO SERRATO Admission Status: ER Accout number: [id number] Admission Date: 08-11-2018 : 1940 Admission Diagnosis: Attending: ASHLEY MORRIS Current LOS: 1 Anticipated DC Date: Planned Disposition: Home Primary Insurance: MEDICARE A & B Discharge Planning Comments: CM met with patient to complete initial dc planning assessment. CM educated patient on the CM role and verbal consent given by patient to complete assessment. Patient lives at home with her . At discharge patient plans to return and feels this is a safe discharge. States her will drive her home on discharge. She is independent with all ADL's and AIDL's. CM discussed availability of home health, rehab services, and medical equipment. Patient denied known discharge needs at this time. She states she wears oxygen only as needed and has a nebulizer, but no longer uses nebulizer medications. She is unsure of the name of her [employer] for her oxygen. CM will continue to follow and will assist as needed with dc plans/needs. Helmet Hat Brim Cutter: Rhoda Cota DCPIA - Discharge Planning Initial Assessment Updated by [email or web address]: Rhoda Cota on 08/12/18 4:29 pm * Is the patient Alert and Oriented? Yes * How many steps to enter\exit or inside your home? 1/0 * PCP Dr. Yesica Tang in [place] * Pharmacy [facility] in [place] * Preadmission Environment Home with Family * ADLs Independent * Equipment Nebulizer Oxygen * List name and contact numbers for known caregivers / representatives who currently or will assist patient after discharge: Nolberto Serrato - spouse - [phone] Jerome Lipscomb - son - [phone] * Verbal permission to speak to the caregivers and representatives has been obtained from the patient. Yes * Community resources currently utilized None * Please name any agencies selected above. Unsure of name of DME for oxygen and nebulizer supplies * Additional services required to return to the preadmission environment? No * Can the patient safely return to the preadmission environment? Yes * Has this patient been hospitalized within the prior 30 days at any hospital? No Coverage Notice Reviewer: [id number] - Rhoda Cota Notice Issued Date-Time: 08/14/2018 10:17 Notice Type: IM Discharge Notice Notice Delivered To: Patient Relationship to Patient: Self Contact Clerk Name: Delivery Method: HAND - Hand Delivered Annalee Days: Prior Verbal Notification: Recipient Understood Notice: Yes Recipient Signature: Yes Med Rec Note Co-signed by Attending: Coverage Notice Comment: IMM explained, signed, given, copy placed on MR Last DP export: 08/14/18 9:28 a Patient Name: ADELSO SERRATO Page [phone] at 1024 All edits/amendments must be made on the electronic document DICTATION DATE: 08/15/18 1023 KNITTING MACHINE OPERATOR HELPER: MAYLIN 08/15/18 1023 RPT#: [id number] DC DATE:08/14/18 STATUS: DIS IN [facility] [address] [place] [address] END OF REPORT
== END 2018-08-14 11:11 | disposition home or self-care (01) | DRG 377 ==
LOC: D.ER 00:10 → D.MS 00:33 → D.SDCHOLD 08-13 17:33 → D.MS 08-13 17:35
PROVIDERS: Emergency Medicine; Internal Medicine Gastroenterology; Internal Medicine Nephrology; ADMIT Emergency Medicine; ATTEND Emergency Medicine
DX: K92.2 Gastrointestinal hemorrhage, unspecified (principal); K55.039 Acute (reversible) ischemia of large intestine, extent unspecified; D62 Acute posthemorrhagic anemia; N17.9 Acute kidney failure, unspecified; J96.11 Chronic respiratory failure with hypoxia; I10 Essential (primary) hypertension; J44.9 Chronic obstructive pulmonary disease, unspecified; I70.8 Atherosclerosis of other arteries; E86.0 Dehydration; I25.10 Atherosclerotic heart disease of native coronary artery without angina pectoris